=== PATIENT | female | born 1940 | race Caucasian/White ===

== ENCOUNTER → 2018-02-07 | Outpatient (CLI) | payer MEDICARE, OTHER ==
[~2018-02-07] MED LIST: ACCUNEB SO1.25 MG/1 INH; ACETAMINOPHEN325 M1 PO; ADVAIR 100-501 EACH INH; ADVAIRDISKUS; ANALGESIC325 MG PO; ASPIRIN EC325 M1; ASPIRIN325 PO; AUGMENTIN 875-1 EACH PO; AVELOX 400 MG400 MG PO; B12INJ; BIOTIN5 MG PO; CALCIUM + VIT1 EACH; CALCIUM + VIT1 EACH PO; CALCIUM 500 +1 EAC5; CALCIUM 500 +1 EAC5 PO; CALCIUM 500+D1 EAC2; CALCIUM 500+D1 EAC2 PO; CALCIUM 500+D1 EAC3 PO; CARVEDILOL3.125 MG; CARVEDILOL3.125 MG PO; CENTRUM SILVER1 EAC4 PO; COMBIVENT; COMBIVENT INH; COREG PO; FISH OIL 1,0001 EAC5; FISH OIL 1,0001 EAC5 PO; FISHOIL; FLAGYL 250 MG250 MG GT; FLAGYL500 MG PO; FOLIC ACID XTR0.8 MG; FOLIC ACID0.8 MG PO; IRON325 PO; K-DUR 20 MEQ T20 MEQ PO; KEFLEX500 MG PO; LEG-GESIC MULT473 ML; LEVAQUIN 500 M500 M2 PO; LEVAQUIN 500 M500 MG PO; LISINOPRIL2.5 MG PO; LOMOTIL TABLET1 EACH; LOMOTIL TABLET1 EACH PO; LUTEIN 15 MG S1 EACH PO; LYRICA 50 MG50 MG; LYRICA 50 MG50 MG PO; MACROBID 100 M100 M1 PO; MAG-OX 400 TAB400 M1 PO; MAG-OXIDE400 MG PO; MULTIVITAMINS; POTASSIUM CHLO20 ME1; POTASSIUM20 PO; PREDNISONE 10 M10 M1; PREDNISONE 10 M10 M1 PO; PRESERVISION A1 EAC2 PO; PROTONIX40 M2; PROTONIX40 M2 PO; RECLAST 55 MG/100 M IV; ROBAXIN500 MG PO; SINGULAIR 10 MG10 M1 PO; SYMBICORT160 MCG/4. INH; TRICOR145 MG; TRICOR145 MG PO; VITAMIN A10000 UNI3; VITAMIN B-12500 MCG PO; VITAMIN D1000 UNI1 PO; VITAMIN D10000 UNIT; ZOFRAN4 MG PO
--- NOTE | 2018-02-07 16:36 | 2DMMODE ---
[place] [address] 2 D/M-MODE ECHOCARDIOGRAM Name: JENAE COHN Bairon Room: [facility]#: [id number] Admission: 02/07/18 Attend Phys: Taylor Steel, Discharge: Date of : 44 Date of Service: 02/07/18 1635 Report #: [id number] THIS REPORT FOR: //name// APPROVED REPORT Study performed: 02/07/2018 14:09:08 EXAM: Comprehensive 2D, Doppler, and color-flow Echocardiogram Patient Location: Out-Patient Status: routine BSA: 1.54 HR: 97 bpm BP: 128/64 mmHg Other Information Study Quality: Adequate Technically limited study due to Breast Implants. Indications Cardiomyopathy 2D Dimensions LVEF(%): 74.18 (>50%) IVSd: 15.17 (7-11mm) LVOT Diam: 20.27 (18-24mm) LVDd: 35.38 mm PWd: 15.32 (7-11mm) Ascending Ao: 27.91 (22-36mm) LVDs: 20.46 (25-40mm) Aortic Root: 22.94 mm Segovia's LVEF: 74.18 % Volumes Left Atrial Volume (Systole) LA ESV Index: 16.20 mL/m2 Aortic Valve AoV Peak Conrad.: 1.31 m/s AO Peak Gr.: 6.84 mmHg LVOT Max P.00 mmHg AO Mean Gr.: 4.44 mmHg LVOT Mean P.35 mmHg LVOT Max V: 1.12 m/s AO V2 VTI: 29.27 cm LVOT Mean V: 0.70 m/s XENA (VTI): 2.41 cm2 LVOT V1 VTI: 21.88 cm AI [place]: 4.86 m/s2 AI PHT: 293.02 [place] [address] 2 D/M-MODE ECHOCARDIOGRAM Name: JENAE COHN Bairon Room: [facility]#: [id number] Admission: 02/07/18 Attend Phys: Taylor Steel, Discharge: Date of : 44 Date of Service: 02/07/18 1635 Report #: [id number] Mitral Valve E/A Ratio: 0.52 MV Decel. Time: 190.62 ms MV E Max Conrad.: 0.63 m/s MV PHT: 55.28 ms MVA (PHT): 3.98 cm2 TDI E/Lateral E': 10.50 E/Medial E': 7.88 Medial E' Conrad.: 0.08 m/s Lateral E' Conrad.: 0.06 m/s Pulmonary Valve PV Peak Conrad.: 1.23 m/s PV Peak Gr.: 6.04 mmHg Left Ventricle The left ventricle is normal size. There is normal LV segmental wall motion. Mild to moderate concentric left ventricular hypertrophy. Left ventricular systolic function is normal. The left ventricular ejection fraction is within the normal range. LVEF is 65-70%. Grade I - abnormal relaxation pattern. Right Ventricle The right ventricle is normal size. The right ventricular systolic function is normal. Atria The left atrium size is normal. The right atrium size is normal. Aortic Valve Mild aortic valve sclerosis. Trace aortic regurgitation. There is no aortic valvular stenosis. Mitral Valve There is mild mitral annular calcification. There is no mitral valve regurgitation noted. No evidence of mitral valve stenosis. Tricuspid Valve The tricuspid valve is normal in structure. There is no tricuspid valve regurgitation noted. Pulmonic Valve The pulmonary valve is normal in structure. There is no pulmonic valvular [place] [address] 2 D/M-MODE ECHOCARDIOGRAM Name: JENAE COHN Room: [facility]#: [id number] Admission: 02/07/18 Attend Phys: Taylor Steel, Discharge: Date of : 44 Date of Service: 02/07/18 1635 Report #: [id number] Great Vessels The aortic root is normal in size. IVC is normal in size and collapses with >50% inspiration Pericardium There is no pericardial effusion. <Conclusion> The left ventricle is normal size. Mild to moderate concentric left ventricular hypertrophy. Left ventricular systolic function is normal. The left ventricular ejection fraction is within the normal range. LVEF is 65-70%. Grade I - abnormal relaxation pattern. The right ventricle is normal size. The left atrium size is normal. Mild aortic valve sclerosis. Trace aortic regurgitation. There is no aortic valvular stenosis. There is mild mitral annular calcification. There is no mitral valve regurgitation noted. No evidence of mitral valve stenosis. The tricuspid valve is normal in structure. IVC is normal in size and collapses with >50% inspiration There is no pericardial effusion. There is normal LV segmental wall motion. <ELECTRONICALLY SIGNED> By: Dino Page MD, FACC 02/07/18 1635 [id number] Dino Page MD, FACC /INF
== END ==
LOC: M.CRD 01-04 15:00
DX: I51.7 Cardiomegaly (principal); I35.8 Other nonrheumatic aortic valve disorders

== ENCOUNTER 2019-05-21 20:11 | Emergency (ER) | payer MEDICARE, OTHER ==
[~2019-05-21] VITALS: Ht 160 cm; Wt 54.9 kg
[2019-05-21 20:15] VITALS: BP 139/88
[2019-05-21] MEDS ORDERED: ASPIR 8181 MG PO (20:21)
== END 2019-05-21 21:00 | disposition home or self-care (01) ==
LOC: M.ERS 20:11
DX: R04.0 Epistaxis (principal); J44.9 Chronic obstructive pulmonary disease, unspecified; I50.9 Heart failure, unspecified; I73.9 Peripheral vascular disease, unspecified; I25.10 Atherosclerotic heart disease of native coronary artery without angina pectoris; Z90.49 Acquired absence of other specified parts of digestive tract; Z88.1 Allergy status to other antibiotic agents; Z88.6 Allergy status to analgesic agent

== ENCOUNTER → 2020-02-12 | Outpatient (CLI) | payer MEDICARE, OTHER ==
[~2020-02-12] MED LIST changes: +ASPIR 8181 MG PO
--- NOTE | 2020-02-12 14:07 | 2DMMODE ---
[place] [address] 2 D/M-MODE ECHOCARDIOGRAM Name: JENAE COHN Room: [facility]#: [id number] Admission: 02/12/20 Attend Phys: Trinidad Moeller Discharge: Date of : 44 Date of Service: 02/12/20 1406 Report #: [id number] THIS REPORT FOR: cc: Radha Anguiano MD, Pamela MD Holkins,Dino West MD [facility] ~ APPROVED REPORT Study performed: 02/12/2020 10:47:30 EXAM: Comprehensive 2D, Doppler, and color-flow Echocardiogram Patient Location: Out-Patient BSA: 1.56 HR: 107 bpm BP: 128/64 mmHg Other Information Study Quality: Fair Technically limited study due to breast implants. Indications Cardiomyopathy 2D Dimensions IVSd: 16.57 (7-11mm) LVOT Diam: 19.68 (18-24mm) LVDd: 42.93 mm PWd: 15.32 (7-11mm) Ascending Ao: 26.26 (22-36mm) LVDs: 26.18 (25-40mm) Aortic Root: 24.58 mm Volumes Left Atrial Volume (Systole) LA ESV Index: 22.00 mL/m2 Aortic Valve AoV Peak Conrad.: 1.18 m/s AO Peak Gr.: 5.56 mmHg LVOT Max P.26 mmHg AO Mean Gr.: 3.34 mmHg LVOT Mean P.22 mmHg LVOT Max V: 1.03 m/s AO V2 VTI: 20.25 cm LVOT Mean V: 0.69 m/s XENA (VTI): 2.67 cm2 LVOT V1 VTI: 17.79 [place] [address] 2 D/M-MODE ECHOCARDIOGRAM Name: LALITJENAE Waddell Room: [facility]#: [id number] Admission: 02/12/20 Attend Phys: Trinidad Moeller Discharge: Date of : 44 Date of Service: 02/12/20 1406 Report #: [id number] Mitral Valve MV Decel. Time: 127.37 ms MV PHT: 36.94 ms MVA (PHT): 5.96 cm2 TDI Medial E' Conrad.: 0.14 m/s Lateral E' Conrad.: 0.10 m/s Pulmonary Valve PV Peak Conrad.: 1.35 m/s PV Peak Gr.: 7.26 mmHg Left Ventricle The left ventricle is normal size. There is normal LV segmental wall motion. Mild to moderate concentric left ventricular hypertrophy. Left ventricular systolic function is hyperdynamic. LVEF is 70%. This study is not technically sufficient to allow evaluation of the LV diastolic function. Right Ventricle The right ventricle is normal size. The right ventricular systolic function is normal. Atria The left atrium size is normal. The right atrium size is normal. Aortic Valve The aortic valve is normal in structure. No aortic regurgitation is present. There is no aortic valvular stenosis. Mitral Valve Mild mitral annular calcification. There is no mitral valve regurgitation noted. No evidence of mitral valve stenosis. Tricuspid Valve The tricuspid valve is normal in structure. There is no tricuspid valve regurgitation noted. Pulmonic Valve The pulmonary valve is normal in structure. There is no pulmonic valvular regurgitation. Great Vessels The aortic root is normal in size. IVC is normal in size and collapses >50% [place] [address] 2 D/M-MODE ECHOCARDIOGRAM Name: ANGELOVERNONJENAE Waddell Room: [facility]#: [id number] Admission: 02/12/20 Attend Phys: Trinidad Moeller Discharge: Date of : 44 Date of Service: 02/12/20 1406 Report #: [id number] Pericardium There is no pericardial effusion. <Conclusion> The left ventricle is normal size. Mild to moderate concentric left ventricular hypertrophy. Left ventricular systolic function is hyperdynamic. LVEF is 70%. The right ventricle is normal size. The left atrium size is normal. The aortic valve is normal in structure. Mild mitral annular calcification. There is no mitral valve regurgitation noted. The tricuspid valve is normal in structure. IVC is normal in size and collapses >50% with inspiration. There is no pericardial effusion. There is normal LV segmental wall motion. <ELECTRONICALLY SIGNED> By: Dino Page MD, [facility] 02/12/20 1406 1406 1406 Dino Page MD, FACC /INF
== END ==
LOC: M.CRD 10:57
PROVIDERS: ATTEND Internal Medicine
DX: I34.8 Other nonrheumatic mitral valve disorders (principal); I42.2 Other hypertrophic cardiomyopathy

== ENCOUNTER → 2021-03-05 | Outpatient (CLI) | payer MEDICARE, OTHER ==
--- NOTE | 2021-03-05 16:10 | 2DMMODE ---
[place] [address] 2 D/M-MODE ECHOCARDIOGRAM Name: JENAE COHN Room: [facility]#: [id number] Admission: 03/05/21 Attend Phys: Trinidad Moeller Discharge: Date of : 44 Date of Service: 03/05/21 1610 Report #: [id number] THIS REPORT FOR: cc: Radha Anguiano MD, Pamela MD Holkins,Dino West MD [facility] ~ APPROVED REPORT Study performed: 03/05/2021 12:35:45 EXAM: Comprehensive 2D, Doppler, and color-flow Echocardiogram Patient Location: Out-Patient BSA: 1.54 HR: 98 bpm BP: 120/60 mmHg Other Information Study Quality: Fair Technically limited study due to lung disease. Indications Cardiomyopathy 2D Dimensions IVSd: 10.74 (7-11mm) LVOT Diam: 17.13 (18-24mm) LVDd: 43.06 mm PWd: 10.82 (7-11mm) Ascending Ao: 30.22 (22-36mm) LVDs: 24.97 (25-40mm) Aortic Root: 23.07 mm Volumes Left Atrial Volume (Systole) LA ESV Index: 21.90 mL/m2 Aortic Valve AoV Peak Conrad.: 1.04 m/s AO Peak Gr.: 4.35 mmHg LVOT Max P.47 mmHg AO Mean Gr.: 2.71 mmHg LVOT Mean P.82 mmHg LVOT Max V: 0.93 m/s AO V2 VTI: 18.66 cm LVOT Mean V: 0.62 m/s XENA (VTI): 2.17 cm2 LVOT V1 VTI: 17.60 cm AI [place]: 2.85 m/s2 [place] [address] 2 D/M-MODE ECHOCARDIOGRAM Name: JENAE COHN Room: [facility]#: [id number] Admission: 03/05/21 Attend Phys: Trinidad Moeller Discharge: Date of : 44 Date of Service: 03/05/21 1610 Report #: [id number] AI PHT: 383.59 ms Mitral Valve MV Decel. Time: 98.76 ms MV PHT: 28.64 ms MVA (PHT): 7.68 cm2 TDI Medial E' Conrad.: 0.06 m/s Lateral E' Conrad.: 0.14 m/s Pulmonary Valve PV Peak Conrad.: 1.23 m/s PV Peak Gr.: 6.10 mmHg Tricuspid Valve RAP Estimate: 5.00 mmHg TR Peak Gr.: 7.58 mmHg RVSP: 12.58 mmHg PA Pressure: 12.58 mmHg Left Ventricle The left ventricle is normal size. There is normal LV segmental wall motion. Mild concentric left ventricular hypertrophy. Left ventricular systolic function is hyperdynamic. LVEF is 65-70%. Grade I - abnormal relaxation pattern. Right Ventricle The right ventricle is normal size. The right ventricular systolic function is normal. Atria The left atrium size is normal. The right atrium size is normal. Aortic Valve The aortic valve is normal in structure. Trace aortic regurgitation. There is no aortic valvular stenosis. Mitral Valve Mild mitral annular calcification. There is no mitral valve regurgitation noted. No evidence of mitral valve stenosis. Tricuspid Valve The tricuspid valve is normal in structure. Trace tricuspid regurgitation. [place] [address] 2 D/M-MODE ECHOCARDIOGRAM Name: JENAE COHN Room: [facility]#: [id number] Admission: 03/05/21 Attend Phys: Trinidad Moeller Discharge: Date of : 44 Date of Service: 03/05/21 1610 Report #: [id number] The pulmonary valve is normal in structure. There is no pulmonic valvular regurgitation. Great Vessels The aortic root is normal in size. IVC is normal in size and collapses >50% with inspiration. Pericardium Mild anterior pericardial effusion. <Conclusion> The left ventricle is normal size. Mild concentric left ventricular hypertrophy. Left ventricular systolic function is hyperdynamic. LVEF is 65-70%. Grade I - abnormal relaxation pattern. The right ventricle is normal size. The left atrium size is normal. The aortic valve is normal in structure. Mild mitral annular calcification. There is no mitral valve regurgitation noted. The tricuspid valve is normal in structure. IVC is normal in size and collapses >50% with inspiration. Mild anterior pericardial effusion. There is normal LV segmental wall motion. <ELECTRONICALLY SIGNED> By: Dino Page MD, FACC 03/05/21 [phone] 09 Dino Page MD, FACC /INF
== END ==
LOC: M.CRD 12:41
PROVIDERS: ATTEND Internal Medicine
DX: I34.0 Nonrheumatic mitral (valve) insufficiency (principal); I42.2 Other hypertrophic cardiomyopathy; R55 Syncope and collapse

== ENCOUNTER 2021-03-19 09:18 | Inpatient (IN) | payer MEDICARE, OTHER ==
[~2021-03-19] VITALS: Ht 160 cm; Wt 55.3 kg
[2021-03-19] MEDS ORDERED: PROTONIX40 M2 PO (09:26)
[2021-03-19] MEDS ORDERED: MAG-OXIDE400 MG PO (09:30)
[2021-03-19] MEDS ORDERED: SINGULAIR 10 MG10 M1 PO (09:34)
[2021-03-19] MEDS ORDERED: BREO ELLIPTA 11 EACH INH (09:36)
[2021-03-19 10:00] LABS: ABSOLUTE LYMPHOCYTES 0.4 thou/uL (0.8-5.3); ABSOLUTE MONOCYTES 0.8 thou/uL (0.0-1.2); ABSOLUTE NEUTROPHILS 3.9 thou/uL (1.6-8.1); BASOPHILS 0.4 %; EOSINOPHILS 0.4 %; HEMATOCRIT 39.3 % (37.0-47.0); HEMOGLOBIN 13.5 gm/dL (12.0-15.0); LYMPHOCYTES 8.2 %; MCH 32.7 pg (26.0-34.0); MCHC 34.3 g/dL (28.0-37.0); MCV 95.5 fL (80.0-100.0); MONOCYTES 14.9 %; MPV 8.8 fl. (7.2-11.1); NUCLEATED RBCS 0 /100WBC; PLATELET COUNT* 170 thou/uL (150-400); POLYS 76.1 %; RBC 4.12 mil/uL (4.20-5.00); RDW-CV 13.6 % (10.5-14.5); WBC 5.1 thou/uL (4.0-11.0)
[2021-03-19 10:09] LABS: CALCIUM 8.2 mg/dL (8.5-10.1); CREATININE 1.1 mg/dL (0.6-1.3); POTASSIUM 4.3 mmol/L (3.5-5.1)
[2021-03-19 10:20] LABS: ALBUMIN 3.6 g/dL (3.4-5.0); TOTAL BILIRUBIN 0.5 mg/dL (<0.1-1.0); TOTAL PROTEIN 6.5 g/dL (6.4-8.2)
--- NOTE | 2021-03-19 16:10 | EKG ---
[place] [address] ELECTROCARDIOGRAM REPORT Name: ANGELOVERNONJENAE Room: [place] [address] ADM IN [facility]#: [id number] Admission: 03/19/21 Attend Phys: Stevenson George, Discharge: Date of : 44 Date of Service: 03/19/21 0923 Report #: [id number] THIS REPORT FOR: //name// [facility] ED Test Date: 2021-03-19 Test Time: 09:23:22 Pat Name: JENAE COHN Department: Room: [facility] Gender: F Pecan Cleaner: ABRAHAM : 1940 Requested By: Kike Ho Order Number: [id number] MD: Dino Page Measurements Intervals [place] Rate: 125 P: 77 VT: 145 QRS: 44 QRSD: 82 T: 199 QT: 285 QTc: 411 Interpretive Statements Sinus tachycardia Multiple ventricular premature complexes Probable left atrial enlargement LVH with secondary repolarization abnormality Compared to ECG 05/25/2017 10:51:31 Ventricular premature complex(es) now present Sinus rate has increased Electronically Signed On 03-19-2021 16:09:56 CDT by Dino Page [email or web address] <ELECTRONICALLY SIGNED> By: Dino Page MD, [facility] 03/19/21 1609 2 2 Dino Page MD, [facility] /EPI
[2021-03-19 16:20] VITALS: BP 118/46
--- NOTE | 2021-03-19 19:07 | NUR ---
ASSUMED CARE AT 1900. REPORT TAKEN FROM SHANNAN VALENZUELA.
[2021-03-19 20:00] VITALS: BP 92/47
--- NOTE | 2021-03-19 20:53 | NUR ---
PROVIDER NOTIFIED REGARDING ORDERS FOR BREATHING TREATMENT
[2021-03-20] VITALS (7 sets, daily range): BP systolic 92–160; BP diastolic 50–71
[2021-03-20 03:56] LABS: ABSOLUTE LYMPHOCYTES 0.3 thou/uL (0.8-5.3); ABSOLUTE MONOCYTES 0.4 thou/uL (0.0-1.2); ABSOLUTE NEUTROPHILS 3.5 thou/uL (1.6-8.1); BASOPHILS 0.1 %; EOSINOPHILS 0.1 %; HEMATOCRIT 37.4 % (37.0-47.0); HEMOGLOBIN 12.8 gm/dL (12.0-15.0); LYMPHOCYTES 7.6 %; MCH 32.7 pg (26.0-34.0); MCHC 34.2 g/dL (28.0-37.0); MCV 95.6 fL (80.0-100.0); MONOCYTES 8.5 %; MPV 9.2 fl. (7.2-11.1); NUCLEATED RBCS 0 /100WBC; PLATELET COUNT* 172 thou/uL (150-400); POLYS 83.7 %; RBC 3.92 mil/uL (4.20-5.00); RDW-CV 13.6 % (10.5-14.5); WBC 4.2 thou/uL (4.0-11.0)
[2021-03-20 04:25] LABS: CALCIUM 7.7 mg/dL (8.5-10.1); CREATININE 0.8 mg/dL (0.6-1.3); POTASSIUM 4.8 mmol/L (3.5-5.1)
--- NOTE | 2021-03-20 10:37 | NUR ---
CM ASSESSMENT: PT IS A&O. PT NORMALLY INDEPENDENT WITH ADL'S. PT RESIDES AT HOME ALONE. PT USES 0 DME. PT HAS 0 HX OF HH OR SNF. PT CURRENTLY ON OXYGEN, BUT DOES NOT USE HOME O2 AT BASELINE. CM WILL REMAIN AVAILABLE TO ASSIST AND FOLLOW NEEDED.
--- NOTE | 2021-03-20 13:45 | NUR ---
ER ADMIT TO RM 212 VIA BED PATIENT ORIENTED TO RM AND CALL LIGHT DENIES PAIN
[2021-03-21] VITALS: BP 129/57
[2021-03-21 04:00] VITALS: BP 132/56
[2021-03-21 04:38] LABS: HEMATOCRIT 35.2 % (37.0-47.0); HEMOGLOBIN 12.3 gm/dL (12.0-15.0); MCH 33.2 pg (26.0-34.0); MCHC 34.9 g/dL (28.0-37.0); MCV 95.2 fL (80.0-100.0); MPV 9.3 fl. (7.2-11.1); NUCLEATED RBCS 0 /100WBC; PLATELET COUNT* 201 thou/uL (150-400); WBC 6.5 thou/uL (4.0-11.0)
[2021-03-21 05:25] LABS: TOTAL BILIRUBIN 0.2 mg/dL (<0.1-1.0); TOTAL PROTEIN 5.8 g/dL (6.4-8.2)
[2021-03-21 06:41] LABS: ABSOLUTE LYMPHOCYTES 0.5 thou/uL (0.8-5.3); ABSOLUTE MONOCYTES 0.1 thou/uL (0.0-1.2); ABSOLUTE NEUTROPHILS 5.9 thou/uL (1.6-8.1)
[2021-03-21 06:43] LABS: PLATELET ESTIMATE ADEQUATE
--- NOTE | 2021-03-21 07:00 | NUR ---
PT SLEPT FAIRLY WELL OVERNIGHT. O2 3L NC SAT 94-96%. CONGESTED COUGH HEARD WHILE AWAKE. TELE SR/ST. ALEMAN. UP AD ASHWINI TO BR. AM LABS DRAWN. LFA SLIV. ABLE TO USE CALL LITE AND MAKE NEEDS KNOWN.
[2021-03-21 08:57] VITALS: BP 109/52
[2021-03-21 12:00] VITALS: BP 96/52
--- NOTE | 2021-03-21 15:50 | NUR ---
Anticipate dc in a day or two. Pt currently on 3L of o2, Pt does not normally wear home o2, Pt will need an ex ox at dc to determine if she needs home o2 at dc.
[2021-03-21 16:00] VITALS: BP 106/50
[2021-03-22 01:28] VITALS: BP 91/5
[2021-03-22 06:18] VITALS: BP 131/60
[2021-03-22 09:00] VITALS: BP 130/55
[2021-03-22 12:14] VITALS: BP 109/48
[2021-03-22 17:09] VITALS: BP 124/45
[2021-03-23 00:15] VITALS: BP 106/48
[2021-03-23 05:18] VITALS: BP 131/72
[2021-03-23 08:00] VITALS: BP 145/52
[2021-03-23 12:00] VITALS: BP 124/63
[2021-03-23] MEDS ORDERED: PREDNISONE 20 M20 MG PO (12:29)
[2021-03-23] MEDS ORDERED: LEVOFLOXACIN500 MG PO (12:29)
[2021-03-23 13:40] VITALS: BP 124/63
--- NOTE | 2021-03-23 16:03 | NUR ---
ASSUMED PT CARE AT 0730, PT AOX4, NO C/O PAIN OR SHORTNESS OF BREATH. PT WORKED W/ RT TODAY AND NEEDS O2 W/ EXERTION BUT NONE AT REST. DC ORDERS RECEIVED AND HOME O2 SET UP FOR PT. IV AND TERMITE CONTROL REPRESENTATIVE REMOVED. PT DC'D BY WC W/ NURSING STAFF AND ALL PAPERWORK AND PERSONAL BELONGINGS AND O2 TO FRIEND'S VEHICLE AT APPROX 1605
== END 2021-03-23 16:05 | disposition home or self-care (01) | DRG 190 ==
LOC: M.ERS 09:18 → M.2W 12:20 → M.TBA-ER 12:20 → M.2W 03-20 12:42
PROVIDERS: Emergency Medicine Emergency Medical Services; ADMIT Internal Medicine; ATTEND Internal Medicine
DX: J43.9 Emphysema, unspecified (principal); J96.01 Acute respiratory failure with hypoxia; I50.32 Chronic diastolic (congestive) heart failure; I42.9 Cardiomyopathy, unspecified; J20.9 Acute bronchitis, unspecified; I25.10 Atherosclerotic heart disease of native coronary artery without angina pectoris; I73.9 Peripheral vascular disease, unspecified; E78.5 Hyperlipidemia, unspecified; R00.0 Tachycardia, unspecified; Z20.822 Contact with and (suspected) exposure to COVID-19; Z98.84 Bariatric surgery status; Z90.49 Acquired absence of other specified parts of digestive tract; Z79.899 Other long term (current) drug therapy; Z88.5 Allergy status to narcotic agent; Z88.1 Allergy status to other antibiotic agents; Z87.891 Personal history of nicotine dependence

== ENCOUNTER → 2021-04-14 | Outpatient (CLI) | payer MEDICARE, OTHER ==
[~2021-04-14] MED LIST changes: +BREO ELLIPTA 11 EACH INH; +LEVOFLOXACIN500 MG PO; +PREDNISONE 20 M20 MG PO
--- NOTE | 2021-04-14 18:19 | CARDNUC ---
[place] [address] CARDIAC NUCLEAR IMAGING REPORT Name: JENAE COHN Room: [facility]#: [id number] Admission: 04/14/21 Attend Phys: Trinidad Moeller Discharge: Date of : 44 Date of Service: 04/14/21 1818 Report #: [id number] THIS REPORT FOR: cc: Radha Anguiano MD, Pamela MD Liston, Michael J. MD [facility] ~ APPROVED REPORT Study performed: 04/14/2021 15:18:38 Exam: Nuclear Stress Test Indication: Chest pain Patient Location: Out-Patient Stress Nurse: NICOLAS Son Tech:JENNA Mcgee Ht: 5 ft 3 in Wt: 115 lbs BSA: 1.53 m2 HR: 106 bpm BP: 143/83 mmHg BMI: 20.36 Rhythm: NSR Medical History Medications: Aspirin, Fenofibrate, K-Cl Allergies: Augmentin, codeine Cardiac Risk Factors: Age, Hyperlipidemia, PVD, Tobacco History (Former) Stress Test Details Stress Test: Pharmacologic stress testing performed using 0.4 mg of regadenoson per 5 mL given IV over 10 seconds. HR Resting HR: 106 bpm Max Heart Rate (APMHR): 142 bpm Max HR Achieved: 121 bpm Target HR (85% APMHR): 120 bpm % of APMHR: 85 Recovery HR: 110 bpm HR response to stress: Normal HR response to stress BP Resting BP: 143/83 mmHg Max BP: 112/62 mmHg BP response to stress: Normal blood pressure response to [address] [address] CARDIAC NUCLEAR IMAGING REPORT Name: JENAE COHN Bairon Room: [facility]#: [id number] Admission: 04/14/21 Attend Phys: Trinidad Moeller Discharge: Date of : 44 Date of Service: 04/14/21 1818 Report #: [id number] stress. ECG Resting ECG: Sinus Tachycardia Stress ECG: Sinus Tachycardia ST Change: None Arrhythmia: None Recovery ECG: Sinus Tachycardia Recovery ST Change: None Recovery Arrhythmia: None Clinical Reason for Termination: Completed protocol Stress Symptoms: None The patient tolerated Lexiscan infusion without significant cardiac symptoms. Stress ECG Conclusion The baseline EKG shows sinus tachycardia without significant ST segment abnormality. EKGs obtained during and post Lexiscan infusion show sinus tachycardia with no significant ST segment changes when compared to baseline. NM EXAM: Myocardial Perfusion REST/STRESS Imaging Protocol: Rest Tc-99m/Stress Tc-99m 1 day Resting Data Rest SPECT myocardial perfusion imaging was performed in supine position 30 minutes following the intravenous injection of 10.7 mCi of Tc-99m Sestamibi. Time of rest injection: 1300 Date: 04/14/2021 The images were gated to evaluate regional wall motion and calculate left ventricular ejection fraction. Administration Route: IV Pharmacologic Stress Pharmacologic stress test was performed by injecting Regadenoson 0.4 mg IV push followed by the intravenous injection of 30.9 mCi of Tc-99m Sestamibi. Time of stress injection: 1530 Date: 04/14/2021 Administration Route: IV Gated Stress SPECT was performed 40 minutes after stress injection. The images were gated to evaluate regional wall motion and calculate left ventricular ejection fraction. Prone [place] [address] CARDIAC NUCLEAR IMAGING REPORT Name: ANGELOVERNONJENAE Room: [facility]#: [id number] Admission: 04/14/21 Attend Phys: Trinidad Moeller Discharge: Date of : 44 Date of Service: 04/14/21 1818 Report #: [id number] Study Quality Study: Good Artifact: No artifact Study Data At rest, the left ventricular ejection fraction was 74%.. Post stress, the left ventricular ejection was 80%.. TID = 1.03. Perfusion Perfusion images obtained at rest and post Lexiscan stress show uniform uptake of the radioisotope throughout the myocardium. There were no defects to suggest infarct or ischemia. Wall Motion Normal left ventricular wall motion. Nuclear Conclusion ECG Findings: negative for ischemia Clinical Findings: negative for ischemia Nuclear Findings: negative for ischemia Exercise Capacity: not assessed Left Ventricular Function: normal Risk Study: low Perfusion images show no defect to suggest infarct or ischemia. Left ventricular systolic function appears normal on gated studies. This is a low risk study. <Conclusion> The baseline EKG shows sinus tachycardia without significant ST segment abnormality. EKGs obtained during and post Lexiscan infusion show sinus tachycardia with no significant ST segment changes when compared to baseline. <ELECTRONICALLY SIGNED> By: Chi Taylor MD, [facility] 04/14/211817 17 17 Chi Taylor MD, FAC /INF
== END ==
LOC: M.NUC 03-26 13:00
PROVIDERS: ATTEND Internal Medicine
DX: I20.8 Other forms of angina pectoris (principal)